=== PATIENT | male | born 1985 | race Caucasian/White ===

== ENCOUNTER 2021-08-15 16:42 | Emergency (ER) | payer OTHER ==
[2021-08-15 17:14] VITALS: RESP 18
[2021-08-15 21:27] LABS: Basophils # (A) 0.1 k/uL (0-0.2); Basophils % (A) 1 %; Eosinophils # (A) 0.3 k/uL (0-0.7); Eosinophils % (A) 3 %; HGB 16.4 gm/dL (13.0-17.5); Lymphocytes # (A) 3.2 k/uL (1.0-4.8); Lymphocytes % (A) 33 %; MCH 28.6 pg (25.0-35.0); MCHC 33.5 g/dL (31.0-37.0); MCV 85.4 fL (80.0-100.0); Mean Platelet Volume 6.3; Monocytes # (A) 0.6 k/uL (0-1.0); Monocytes % (A) 6 %; Neutrophils # (A) 5.2 k/uL (1.3-7.7); Neutrophils % (A) 54 %; Platelet Count 348 k/uL (150-450); RBC 5.74 m/uL (4.30-5.90); RDW 13.5 % (11.5-15.5); WBC 9.8 k/uL (3.8-10.6)
--- NOTE | 2021-08-15 21:29 | ED ---
Abdominal Pain HPI - General Chief Complaint: Abdominal Pain Stated Complaint: Back Pain Time Seen by Provider: 08/15/21 21:14 Source: patient Mode of arrival: ambulatory Limitations: no limitations - History of Present Illness Initial Comments: This patient is a 36-year-old man who presents to have evaluation of left flank pain. This pain is been present for most of the day. He describes as an aching or fullness. Almost a squeezing type of pain. Patient has not noted worsening or relieving factors. Patient is concerned because there is family history of "kidney problems." He has not noticed any hematuria. He is feeling like he is urinating more frequently. There is no dysuria. No discharge. No fever or chills. No abdominal pain. The patient does note he has had a couple of weeks of some mid back aching type pain but this he states is something completely different than what is been going on today. MD Complaint: flank pain Onset/Timin -: days(s) Location: L flank Radiation: none Migration to: no migration Severity: moderate Quality: cramping, fullness Consistency: colicky Improves With: nothing Worsens With: nothing Associated Symptoms: nausea - Related Data Home Medications Medication Instructions Recorded Confirmed Multivitamins, Thera [Multivitamin 1 tab PO HS 08/15/21 08/15/21 (formulary)] amLODIPine [Norvasc] 5 mg PO DAILY 08/15/21 08/15/21 Previous Rx's Medication Instructions Recorded Methocarbamol [Robaxin-750] 750 mg PO TID PRN #30 tablet 08/15/21 Allergies Allergy/AdvReac Type Severity Reaction Status Date / Time No Known Allergies Allergy Verified 08/15/21 22:04 Review of Systems ROS Statement: Those systems with pertinent positive or pertinent negative responses have been documented in the HPI. ROS Other: All systems not noted in ROS Statement are negative. Constitutional: Denies: fever, chills Respiratory: Denies: cough, dyspnea Cardiovascular: Denies: chest pain, palpitations, edema Gastrointestinal: Reports: as per HPI, abdominal pain, nausea. Denies: vomiting, diarrhea, constipation Genitourinary: Reports: frequency. Denies: urgency, dysuria, hematuria, testicular pain, testicular mass Musculoskeletal: Reports: as per HPI, back pain Skin: Denies: rash Neurological: Denies: headache, weakness, numbness Past Medical History Past Medical History: Hypertension History of Any Multi-Drug Resistant Organisms: None Reported Past Surgical History: No Surgical Hx Reported Past Psychological History: No Psychological Hx Reported Smoking Status: Never smoker Past Alcohol Use History: Occasional Past Drug Use History: None Reported General Exam Limitations: no limitations General appearance: alert, in no apparent distress Head exam: Present: atraumatic, normocephalic Eye exam: Present: normal appearance. Absent: scleral icterus, conjunctival injection ENT exam: Present: normal oropharynx Neck exam: Present: normal inspection Respiratory exam: Present: normal lung sounds bilaterally. Absent: respiratory distress, wheezes, rales, rhonchi, stridor Cardiovascular Exam: Present: regular rate, normal rhythm, normal heart sounds. Absent: systolic murmur, diastolic murmur, rubs, gallop GI/Abdominal exam: Present: soft. Absent: distended, tenderness, guarding, rebound, rigid, mass, pulsatile mass, hernia Extremities exam: Present: normal inspection, normal capillary refill. Absent: pedal edema, calf tenderness Back exam: Present: normal inspection, CVA tenderness (L). Absent: CVA tenderness (R) Neurological exam: Present: alert Skin exam: Present: warm, dry, intact, normal color. Absent: rash Course Vital Signs 08/15/21 08/15/21 17:09 21:13 Temperature 98.2 F Pulse Rate 109 H 99 Respiratory 18 18 Rate Blood Pressure 173/112 165/116 O2 Sat by Pulse 100 100 Oximetry Medical Decision Making - Lab Data Result diagrams: 08/15/21 21:22 08/15/21 21:22 Lab Results 08/15/21 08/15/21 08/15/21 Range/Units 21:22 21:22 21:22 WBC 9.8 (3.8-10.6) k/uL RBC 5.74 (4.30-5.90) m/uL Hgb 16.4 (13.0-17.5) gm/dL Hct 49.0 (39.0-53.0) % MCV 85.4 (80.0-100.0) fL MCH 28.6 (25.0-35.0) pg MCHC 33.5 (31.0-37.0) g/dL RDW 13.5 (11.5-15.5) % Plt Count 348 (150-450) k/uL MPV 6.3 Neutrophils % 54 % Lymphocytes % 33 % Monocytes % 6 % Eosinophils % 3 % Basophils % 1 % Neutrophils # 5.2 (1.3-7.7) k/uL Lymphocytes # 3.2 (1.0-4.8) k/uL Monocytes # 0.6 (0-1.0) k/uL Eosinophils # 0.3 (0-0.7) k/uL Basophils # 0.1 (0-0.2) k/uL Sodium 139 (137-145) mmol/L Potassium 3.6 (3.5-5.1) mmol/L Chloride 101 (98-107) mmol/L Carbon Dioxide 23 (22-30) mmol/L Anion Gap 15 mmol/L BUN 9 (9-20) mg/dL Creatinine 0.91 (0.66-1.25) mg/dL Est GFR (CKD-EPI)AfAm >90 (>60 ml/min/1.73 sqM) Est GFR (CKD-EPI)NonAf >90 (>60 ml/min/1.73 sqM) Glucose 93 (74-99) mg/dL Calcium 9.5 (8.4-10.2) mg/dL Total Bilirubin 1.6 H (0.2-1.3) mg/dL AST 26 (17-59) U/L ALT 29 (4-49) U/L Alkaline Phosphatase 72 (38-126) U/L Total Protein 8.5 H (6.3-8.2) g/dL Albumin 5.4 H (3.5-5.0) g/dL Amylase 58 (30-110) U/L Lipase 146 (23-300) U/L Urine Color Yellow Urine Appearance Clear (Clear) Urine pH 6.0 (5.0-8.0) Ur Specific [place] 1.013 (1.001-1.035) Urine Protein Negative (Negative) Urine Glucose (UA) Negative (Negative) Urine Ketones 1+ H (Negative) Urine Blood Negative (Negative) Urine Nitrite Negative (Negative) Urine Bilirubin Negative (Negative) Urine Urobilinogen <2.0 (<2.0) mg/dL Ur Leukocyte Esterase Negative (Negative) Disposition Clinical Impression: Flank pain, Hypertension Disposition: HOME SELF-CARE Condition: Good Instructions (If sedation given, give patient instructions): Hypertension (ED), Flank Pain (ED) Additional Instructions: As we discussed, there is a 1.5 cm nodule to the left adrenal gland that will need repeat imaging months later. Prescriptions: Methocarbamol [Robaxin-750] 750 mg PO TID PRN #30 tablet PRN Reason: pain Is patient prescribed a controlled substance at d/c from ED?: No Referrals: Chong Masters MD [REFERRING] - 1-2 days Natasha Hernandez MD [STAFF PHYSICIAN] - 1-2 days Time of Disposition: 23:05
[2021-08-15 21:38] LABS: ALT 29 U/L (4-49); AST 26 U/L (17-59); African American GFR (CKD) >90 (>60 ml/min/1.73 sqM); Albumin 5.4 g/dL (3.5-5.0); Alkaline Phosphatase 72 U/L (38-126); Amylase 58 U/L (30-110); Anion Gap 15 mmol/L; Blood Urea Nitrogen 9 mg/dL (9-20); Calcium 9.5 mg/dL (8.4-10.2); Carbon Dioxide 23 mmol/L (22-30); Chloride 101 mmol/L (98-107); Glucose 93 mg/dL (74-99); Lipase 146 U/L (23-300); Non-African American GFR(CKD) >90 (>60 ml/min/1.73 sqM); Potassium 3.6 mmol/L (3.5-5.1); Sodium 139 mmol/L (137-145); Total Bilirubin 1.6 mg/dL (0.2-1.3); Total Protein 8.5 g/dL (6.3-8.2)
[2021-08-15 21:46] LABS: Appearance,Urine Clear (Clear); Bilirubin,Urine Negative (Negative); Blood,Urine Negative (Negative); Color,Urine Yellow; Glucose,Urine (UA) Negative (Negative); Ketones,Urine 1+ (Negative); Leukocyte Esterase,Urine Negative (Negative); Nitrite,Urine Negative (Negative); Protein,Urine Negative (Negative); Specific Gravity,Urine 1.013 (1.001-1.035); Urobilinogen,Urine <2.0 mg/dL (<2.0)
--- NOTE | 2021-08-15 22:37 | CT ---
EXAMINATION TYPE: CT abdomen pelvis wo con DATE OF EXAM: 08/15/2021 COMPARISON: None HISTORY: L FLANK PAIN CT DLP: 631.5 mGycm Automated exposure control for dose reduction was used. Images obtained from the diaphragm to the floor of the pelvis without contrast. The lung bases are clear. There is no pleural effusion. Heart size is normal. There is no pericardial effusion. Liver spleen pancreas stomach and gallbladder appear intact. Bilateral not dilated. There is low density 1.5 cm left adrenal mass. Kidneys have normal size. There is no hydronephrosis. Ureters are not dilated. There is no retroperitoneal adenopathy. Appendix appears normal. Bladder dis tends smoothly. There is no inguinal hernia. There is no free fluid in the pelvis. Lumbar vertebrae have normal spacing and alignment. Posterior element are intact. Bony pelvis intact. There is no lumbar compression fracture. Hip joints are intact. IMPRESSION: Negative CT scan abdomen and pelvis. Normal appendix. No renal stone or obstruction.
[2021-08-15 23:25] VITALS: BP 175/113; PULSE 85; TEMP 98
== END 2021-08-15 23:24 | disposition home or self-care (01) ==
LOC: EC 16:42
DX: I10 Essential (primary) hypertension (principal); R10.9 Unspecified abdominal pain; R11.0 Nausea; Z79.899 Other long term (current) drug therapy
CPT/HCPCS: 36415; 74176; 80053; 81003; 82150; 83690; 85025; 99284